=== PATIENT | male | born 1955 | race Caucasian/White ===

== ENCOUNTER 2016-11-02 07:27 | Day surgery (SDC) | payer OTHER ==
--- NOTE | ~2016-11-02 | EGD ---
EGD REPORT [facility] [address] [place]. [address] NAME: ANTONIO GRAHAM : 57 STATUS : REG [facility] – [place], [place] PAT#: [id number] AGE: 61 ADM/REG DATE : 11/02/16 MR#: [id number] REPORT SERV DATE: 11/02/16 DICTATED BY: ELHAM GOODSON DATE: 11/02/16 REPORT STATUS : Draft [facility]: [facility] DATE: 11/02/16 [facility] Center Patient Name: Antonio Graham Date of : 1955 Attending MD: ELHAM GOODSON MD Procedure Date No Time: 11/02/2016 Procedure: Colonoscopy Indications: Screening for colorectal malignant neoplasm; average risk; index exam. Patient Profile: Informed consent was obtained from the patient by me prior to the procedure. Risks, benefits, and alternatives were discussed including the risk of bleeding, perforation, infection, reaction to medicine, missed lesion, and cardiopulmonary complications. Referring MD: Forrest Jordan Medicines: Monitored Anesthesia Care Complications: No immediate complications. Procedure: Pre-Anesthesia Assessment: - ASA Grade Assessment: II - A patient with mild systemic disease. After I obtained informed consent, the scope was passed under direct vision. Throughout the procedure, the patient's blood pressure, pulse, and oxygen saturations were monitored continuously. The adult colonoscope was introduced through the anus and advanced to the cecum, identified by appendiceal orifice and ileocecal valve. The colonoscope was slowly withdrawn with careful examination all mucosal surfaces including specific attention around flexures and tip deflection behind folds; retroflexion performed in rectum. The colonoscopy was performed without difficulty. The patient tolerated the procedure well. The quality of the bowel preparation was adequate. The ileocecal valve, appendiceal orifice and rectum were photographed. Findings: The colon (entire examined portion) appeared normal. Multiple medium-mouthed diverticula were found in the sigmoid colon and in the descending colon. Internal hemorrhoids were found during retroflexion and were mild. Impression: - The entire examined colon is normal. - Diverticulosis in the sigmoid colon and in the descending colon. - Internal hemorrhoids. EGD REPORT [address] [address] NAME: ANTONIO GRAHAM : [birth year] STATUS : REG [facility] – [place], [place] PAT#: [id number] AGE: 61 ADM/REG DATE : 11/02/16 MR#: [id number] REPORT SERV DATE: 11/02/16 DICTATED BY: ELHAM GOODSON DATE: 11/02/16 REPORT STATUS : Draft TRANSCRIBED BY: [employer] DATE: 11/02/16 Recommendation: - Patient has a contact number available for emergencies. The signs and symptoms of potential delayed complications were discussed with the patient. Return to normal activities tomorrow. Written discharge instructions were provided to the patient. - Regular diet. - Continue present medications. - Repeat colonoscopy in 10 years for screening purposes. Procedure Code(s): --- Professional --- 82638, Colonoscopy, flexible, proximal to splenic flexure; diagnostic, with or without collection of specimen(s) by brushing or washing, with or without colon decompression (separate procedure) Diagnosis Code(s): --- Professional --- K64.8, Other hemorrhoids K57.30, Diverticulosis of large intestine without perforation or abscess without bleeding Z12.11, Encounter for screening for malignant neoplasm of colon CPT copyright 2013 [employer]. All rights reserved. The codes documented in this report are preliminary and upon home hospice rn review may be revised to meet current compliance requirements. ELHAM GOODSON MD 11/02/2016 9:38 AM This report has been signed electronically. Number of Addenda: 0 Note Initiated On: 11/02/2016 9:12 AM Scope Withdrawal Time 0 hours 10 minutes 26 seconds [address] [place] [address]
[~2016-11-02 07:27] MED LIST: ASAB PO; GLUCPH PO; NORV10 PO; NORV25 PO; PRAVACHOL40 MG PO
== END 2016-11-02 23:59 | disposition home or self-care (01) ==
LOC: DMU 07:27
PROVIDERS: Internal Medicine Gastroenterology
PROC: 0DJD8ZZ Inspection of Lower Intestinal Tract, Via Natural or Artificial Opening Endoscopic (ICD-10-PCS; principal; 2016-11-02 09:15)
DX: Z12.11 Encounter for screening for malignant neoplasm of colon (principal); K64.8 Other hemorrhoids; K57.30 Diverticulosis of large intestine without perforation or abscess without bleeding; I10 Essential (primary) hypertension; E66.9 Obesity, unspecified; E11.9 Type 2 diabetes mellitus without complications; E78.5 Hyperlipidemia, unspecified; Z88.0 Allergy status to penicillin; E78.00 Pure hypercholesterolemia, unspecified; Z98.890 Other specified postprocedural states; Z87.442 Personal history of urinary calculi; Z85.46 Personal history of malignant neoplasm of prostate; Z85.51 Personal history of malignant neoplasm of bladder; Z79.899 Other long term (current) drug therapy; Z79.82 Long term (current) use of aspirin; Z79.84 Long term (current) use of oral hypoglycemic drugs
CPT/HCPCS: 82962

== ENCOUNTER 2017-02-15 06:38 | Day surgery (SDC) | payer OTHER ==
[2017-02-13 17:03] LABS: BASOPHILS 0.4 %; BASOPHILS ABSOLUTE 0.03 10/3/uL (0.0-0.16); EOSINOPHILS 2.2 %; EOSINOPHILS ABSOLUTE 0.17 10/3/uL (0.0-0.53); HEMATOCRIT 46.7 % (40.0-51.0); HEMOGLOBIN 16.2 g/dL (13.6-17.8); IMMATURE GRANULOCYTES 0.3 %; IMMATURE GRANULOCYTES ABSOLUTE 0.02 10/3/uL (0.0-0.11); LYMPHOCYTES 26.4 %; LYMPHOCYTES ABSOLUTE 2.02 10/3/uL (0.67-4.30); MEAN CORPUS HGB CONC 34.7 g/dL (32.0-36.0); MEAN CORPUSCULAR VOLUME 89.5 fL (80-100); MEAN PLATELET VOLUME 9.7 fL (9.2-13.0); MONOCYTES 7.2 %; MONOCYTES ABSOLUTE 0.55 10/3/uL (0.21-1.20); NEUTROPHILS 63.5 %; NEUTROPHILS ABSOLUTE 4.86 10/3/uL (2.02-8.40); PLATELET COUNT 223 10/3/uL (150-400); RBC DISTRIBUTION WIDTH 13.4 % (12.0-16.0); RED CELL COUNT 5.22 10/6/uL (4.7-6.1); WHITE BLOOD CELLS 7.7 10/3/uL (4.5-10.5)
[2017-02-13 17:04] LABS: MANUAL DIFF NO %
[2017-02-13 17:10] LABS: INTERNATIONAL NORMAL RATI 1.1 UNITS (-); PARTIAL THROMBO TIME 32.3 SEC (22.5-37.2); PROTIME (NOT ORD) 13.7 SEC (12.0-14.5)
[2017-02-13 17:14] LABS: CALCIUM, SERUM 9.2 MG/DL (8.5-10.4); CHLORIDE, SERUM 103 MMOL/L (96-112); CO2 (CARBON DIOXIDE) 31 MMOL/L (24-34); CREATININE 1.16 MG/DL (0.70-1.30); GFR AFRICAN AMERICAN 79 ML/MIN (>=60); GFR NON AFRICAN AMERICAN 68 ML/MIN (>=60); GLUCOSE, SERUM 96 MG/DL (60-99); POTASSIUM, SERUM 4.4 MMOL/L (3.5-5.3); SODIUM, SERUM 140 MMOL/L (135-148)
[2017-02-13 17:15] LABS: BUN (BLOOD UREA NITROGEN) 21 MG/DL (6-23)
--- NOTE | ~2017-02-15 | OP ---
Record Of Operation [facility] [address] [place]. [address] NAME: SILVANA GRAHAM JR : 57 STATUS : REG [facility] – [place] PAT#: [id number] AGE: 61 ADM/REG DATE : 02/15/17 MR#: [id number] REPORT SERV DATE: 02/15/17 DICTATED BY: OZZY WILLINGHAM DATE: 02/15/17 REPORT STATUS : Draft TRANSCRIBED BY: SERGO DATE: 02/15/17 DATE OF PROCEDURE: 02/15/2017 PREOPERATIVE DIAGNOSIS: Bladder lesion. POSTOPERATIVE DIAGNOSIS: Bladder lesion x2. PROCEDURE: Cystoscopy, bladder biopsies x2 with fulguration. ANESTHESIA: General. BLOOD LOSS: Minimal. DRAINS: None. INDICATION: A 61-year-old male with recent cystoscopy revealed him to have an erythematous raised bladder lesion on the left lateral wall. FINDINGS: Erythematous raised bladder lesion on the left lateral wall and on the posterior wall to the right of midline. TECHNIQUE: The patient was identified and brought to the operating room, administered general anesthetic agent by the Anesthesia Service, and intubated. He was positioned in the dorsal lithotomy position. Penis, groin, scrotum, and perineum were prepped and draped in the usual sterile fashion. A 22-Sammarinese cystoscopic sheath with 30-degree lens was used for cystourethroscopy. The anterior and bulbous urethra was normal. The prostatic urethra shows hypertrophy. The bladder was entered and surveyed. The left and right ureteral orifices were normal in position, location, and configuration. On the posterior wall of the bladder just to the right, there was a hypervascular erythematous lesion less than a centimeter in size. On the left lateral wall, there was a hypervascular erythematous raised lesion approximately 1.5 cm in size. The remainder of the bladder was surveyed. There were some areas of hypervascularity, but no other areas of erythema or abnormality. I used the cold cup biopsy forceps and biopsied each of those previously described lesions. They were sent separately. I then used the Bugbee electrode and cauterized their base and their surrounding tissue. Fastidious hemostasis was achieved. The bladder was drained, the cystoscope was removed, and the procedure was terminated. MIHAELA/SERGO Ozzy Willingham M.D. / [id number] [facility] Of [place] [address] [place]. [address] NAME: SILVANA GRAHAM JR : 57 STATUS : REG [facility] PAT#: [id number] AGE: 61 ADM/REG DATE : 02/15/17 MR#: [id number] REPORT SERV DATE: 02/15/17 DICTATED BY: OZZY WILLINGHAM DATE: 02/15/17 REPORT STATUS : Draft TRANSCRIBED BY: MODL DATE: 02/15/17 CC: Inez Murphy MD
== END 2017-02-15 23:59 | disposition home or self-care (01) ==
LOC: SDC 06:38
PROVIDERS: Urology
PROC: 0T5B8ZZ Destruction of Bladder, Via Natural or Artificial Opening Endoscopic (ICD-10-PCS; principal; 2017-02-15 07:45)
DX: C67.2 Malignant neoplasm of lateral wall of bladder (principal); N30.20 Other chronic cystitis without hematuria; E11.9 Type 2 diabetes mellitus without complications; E78.5 Hyperlipidemia, unspecified; Z88.0 Allergy status to penicillin; Z90.89 Acquired absence of other organs; Z98.890 Other specified postprocedural states; Z87.442 Personal history of urinary calculi
CPT/HCPCS: 80048; 82962; 85025; 85610; 85730; 88305; 93005; J0330; J2250; J2405; J3010